=== PATIENT | female | born 1975 | race Caucasian/White ===

== ENCOUNTER 2024-02-06 10:45 | Inpatient (IN) | payer OTHER ==
[~2024-02-06] VITALS: Ht 154.9 cm; Wt 64.4 kg
[~2024-02-06 10:45] MED LIST: MULTI-DAY1 TAB PO; SYNTHROID50 MCG PO
[2024-02-06 12:28] VITALS: BP 110/71
[2024-02-16] MEDS ORDERED: CEFAZOLIN SODIUM 1,000 MG VIAL IV ONE (14:00)
[2024-02-16] MEDS ORDERED: POVIDONE-IODINE 118 ML BOTT TOP ONE (14:00)
[2024-02-16] MEDS ORDERED: MORPHINE SULFATE 4 MG/ML CARTRIDGE IV SCH (16:01)
[2024-02-16] MEDS ORDERED: PROMETHAZINE HCL 25 MG/ML AMPUL IV SCH (16:01)
[2024-02-16] MEDS ORDERED: MORPHINE SULFATE 4 MG/ML VIAL IV ONE (17:00)
[2024-02-16 18:19] VITALS: BP 139/82
[2024-02-16] MEDS ORDERED: KETOROLAC TROMETHAMINE 30 MG VIAL IV ONE (21:00)
[2024-02-17] VITALS: BP 127/74
[2024-02-17] MEDS ORDERED: SIMETHICONE 125 MG CAPSULE PO SCH (05:00)
[2024-02-17] MEDS ORDERED: GABAPENTIN 300 MG CAPSULE PO SCH (05:00)
[2024-02-17] MEDS ORDERED: POLYETHYLENE GLYCOL 3350 17 GM BLIST.PACK PO SCH (05:00)
[2024-02-17] MEDS ORDERED: IBUprofen 800 MG TABLET PO SCH (06:00)
[2024-02-17 06:34] LABS: HEMATOCRIT 30.5 % (36.0-45.00); HEMOGLOBIN 10.4 g/dL (12.0-15.00); MEAN CELL VOLUME 82.2 fL (80.00-100.00); PLATELET COUNT 284 K/uL (150-450); RED BLOOD COUNT 3.72 M/uL (4.00-6.00); RED CELL DISTRIBUTION WIDTH 13.8 % (11.5-14.5)
[2024-02-17 09:51] VITALS: BP 126/79
[2024-02-17 16:04] VITALS: BP 100/60
[2024-02-17 20:53] VITALS: BP 113/75
[2024-02-18 01:02] VITALS: BP 119/67
[2024-02-18] MEDS ORDERED: SIMETHICONE125 M1 PO (07:11)
[2024-02-18] MEDS ORDERED: GABAPENTIN300 MG PO (07:11)
[2024-02-18] MEDS ORDERED: IBUPROFEN800 MG PO (07:11)
[2024-02-18] MEDS ORDERED: POLY119PG PO (07:11)
[2024-02-18 08:45] VITALS: BP 126/85
== END 2024-02-18 14:05 | disposition home or self-care (01) | DRG 743 ==
LOC: OB/GYN 02-16 05:54 → O/R 02-16 05:54 → OB/GYN 02-16 07:00
PROVIDERS: ADMIT Obstetrics & Gynecology; ATTEND Obstetrics & Gynecology
PROC: 0UT70ZZ Resection of Bilateral Fallopian Tubes, Open Approach (ICD-10-PCS; 2024-02-16)
PROC: 0UB00ZZ Excision of Right Ovary, Open Approach (ICD-10-PCS; 2024-02-16)
PROC: 0DNW0ZZ Release Peritoneum, Open Approach (ICD-10-PCS; 2024-02-16)
PROC: 0UT90ZZ Resection of Uterus, Open Approach (ICD-10-PCS; principal; 2024-02-16 07:00)
DX: N80.03 Adenomyosis of the uterus (principal); D27.0 Benign neoplasm of right ovary; N73.6 Female pelvic peritoneal adhesions (postinfective); N84.0 Polyp of corpus uteri; N93.9 Abnormal uterine and vaginal bleeding, unspecified; R10.2 Pelvic and perineal pain; D25.9 Leiomyoma of uterus, unspecified; Z20.822 Contact with and (suspected) exposure to COVID-19